=== PATIENT | female | born 1955 | race Caucasian/White ===

== ENCOUNTER 2020-12-12 06:31 | Day surgery (SDC) | payer BC ==
[2020-12-06 12:17] LABS: Urine Appearance CLEAR (Clear); Urine Bilirubin NEGATIVE (Negataive); Urine Blood TRACE (Negative); Urine Color YELLOW (Yellow); Urine Glucose NEGATIVE (Negative); Urine Protein NEGATIVE (Negative); Urine Urobilinogen 0.2 mg/dL (0.2-1.0); Urine pH 5.5 (5.0-7.0)
[2020-12-06 12:18] LABS: Urine Microscopic Reflex ORDER UMIC
[2020-12-06 12:22] LABS: Protime INR 0.97
[2020-12-06 12:25] LABS: Absolute Lymphocytes (CBC) 1.4 K/uL (0.7-4.9); Basophils % 0.8 % (0-1.3); Hematocrit 36.6 % (36.0-45.0); Lymphocytes % 27.4 % (15.3-44.8); MPV 7.5 fL (7.6-11.3); RBC Red Blood Cell Count 4.24 M/uL (3.86-4.86)
[2020-12-06 12:40] LABS: Urine Bacteria <20 /HPF (<20); Urine RBC NONE SEEN /HPF (NONE SEEN); Urine Urothelial Cells <5 /HPF (NONE SEEN)
[2020-12-12] MEDS ORDERED: Ringers Lactate 1,000 ML IV ONE ×3 (07:01→11:30)
[2020-12-12] MEDS ORDERED: SCOPOLAMINE HYDROBROMIDE PATCH TD ONE (07:01)
[2020-12-12] MEDS ORDERED: CEFAZOLIN/SWI 2gm 2 GM/20 ML SYR ONE (07:02)
[2020-12-12] MEDS ORDERED: propofoL 200 MG/20 ML VIAL IV ONE (07:17)
[2020-12-12] MEDS ORDERED: KETAMINE HCL 500 MG/5 ML VIAL ONE (07:17)
[2020-12-12] MEDS ORDERED: ROCURONIUM 50 MG/5 ML VIAL IV ONE (07:17)
[2020-12-12] MEDS ORDERED: MIDAZOLAM HCL 2 MG/2 ML INJ ONE (07:18)
[2020-12-12] MEDS ORDERED: dexAMETHasone 10 MG/ML VIAL ONE (07:18)
[2020-12-12] MEDS ORDERED: LIDOCAINE 2% MPF 5 ML VIAL ONE (07:18)
[2020-12-12] MEDS ORDERED: FENTANYL CITR 250 MCG/5 ML ONE (07:18)
[2020-12-12] MEDS ORDERED: ONDANSETRON 4 MG/2 ML VIAL ONE (07:21)
[2020-12-12] MEDS ORDERED: NA CHLORIDE 0.9% 100 ML IV ONE (07:43)
[2020-12-12] MEDS ORDERED: BUPIVACAINE 0.25% PF 30 ML VIAL ONE ×2 (07:44→13:05)
[2020-12-12] MEDS ORDERED: CEFAZOLIN/SWI 1gm 1 GM/10 ML SYR ONE (08:03)
[2020-12-12] MEDS ORDERED: EPHEDRINE SULF 50 MG/ML VIAL ONE (08:33)
[2020-12-12] MEDS: VASOPRESSIN 20 UNIT/ML VIAL ONE ×2 (08:54→12:59)
[2020-12-12] MEDS ORDERED: CEFAZOLIN SODIUM 1 GM/VIAL ONE (11:14)
[2020-12-12] MEDS ORDERED: FENTANYL CITR 100 MCG/2 ML ONE (12:46)
[2020-12-12] MEDS ORDERED: KETOROLAC 30 MG/ML INJ ONE (14:24)
[2020-12-12] MEDS ORDERED: MORPHINE 10 MG/ML VIAL ONE (14:32)
[2020-12-12] MEDS ORDERED: clonazePAM 0.5 MG TAB PO PRN (14:36)
[2020-12-12] MEDS ORDERED: ONDANSETRON 4 MG/2 ML VIAL IV PRN (14:37)
[2020-12-12] MEDS ORDERED: MORPHINE 2 MG/ML SYR IV PRN (14:37)
[2020-12-12] MEDS ORDERED: PROMETHAZINE 25 MG TABLET PO PRN (14:37)
[2020-12-12] MEDS ORDERED: ACETAMINOPHEN 500 MG TAB PO PRN (14:37)
--- NOTE | 2020-12-12 14:46 | P.BOP ---
Preoperative diagnosis: anterior apical stage 3 defects, rectocele, CHEO Postoperative diagnosis: same, perinal body defect Primary procedure: Laparoscopy BSO, SCP, MUS (TVT-O) Secondary procedure: Rectocele repair, perineorrhaphy,cysto Back Shoe Cutter: Robert Miramontes Estimated blood loss: 100 Specimen: bilateral ovaries Findings: -1/+2/-2/5/mod/8/-1/0/na, tubes ovaries adhered to cuff Anesthesia: General Complications: None Drain(s): Urinary catheter Implants: upsylon y mesh, tvt-o Transferred to: Recovery Room Condition: Good
[2020-12-12] MEDS ORDERED: Ringers Lactate 1,000 ML IV SCH (15:00)
[2020-12-12 15:24] VITALS: O2SAT 98
[2020-12-12] MEDS ORDERED: PNEUMOCOCCAL VACCINE 0.5 ML IMVAC ONE (20:00)
[2020-12-12] MEDS ORDERED: HOME MED 1 EA UNK (Famotidine [Famotidine] 40 MG Tablet) PO SCH (21:00)
[2020-12-12] MEDS ORDERED: LANSOPRAZOLE 15 MG PO SCH (21:00)
[2020-12-13 06:02] LABS: Absolute Lymphocytes (CBC) 1.6 K/uL (0.7-4.9); Basophils % 0.2 % (0-1.3); Hematocrit 27.4 % (36.0-45.0); Lymphocytes % 17.1 % (15.3-44.8); MPV 7.4 fL (7.6-11.3); RBC Red Blood Cell Count 3.26 M/uL (3.86-4.86)
[2020-12-13] MEDS ORDERED: lisinopriL 10 MG TAB PO SCH (09:00)
[2020-12-13] MEDS ORDERED: [UNRECOGNIZED DRUG - OTHER] PO SCH (09:00)
[2020-12-13] MEDS ORDERED: HOME MED 1 EA UNK (Thyroid,Pork [Armour Thyroid] 60 MG Tablet) PO SCH (09:00)
[2020-12-13] MEDS ORDERED: CALCIUM CARBONATE PO SCH (09:00)
[2020-12-13] MEDS ORDERED: VITAMIN D3 PO SCH (09:00)
[2020-12-13 11:18] VITALS: BP 97/51; TEMP 98.4
--- NOTE | 2021-01-01 20:54 | OP ---
Date of Procedure: 12/12/2020 Surgeon: Tiffanie Tran MD Forestry And Wildlife Manager: Robert Miramontes MD. Preoperative Diagnosis: Anterior and apical stage III defect, rectocele, stress urinary incontinence . Postoperative Diagnosis: Anterior and apical stage III defect, rectocele, stress urinary incontinenc e and perineal body defect. Procedures Performed: 1.Diagnostic laparoscopy, bilateral salpingo-oophorectomy. 2.Laparoscopic sacral colpopexy with Upsylon Y-mesh. 3.Mid urethral sling (TVTO). 4.Rectocele repair (posterior wall repair). 5.Perineorrhaphy and cystoscopy. Ebl: 100. Specimen: Bilateral ovaries. Anesthesia: General endotracheal. Complications: No complications. Drains: Urinary catheter. Implants: Upsylon Y-mesh and TVTO. Findings: On pop Q -1, -2, 5 moderate 8, -1, 0, NA. Tubes and ovaries adhered to the vaginal cuff, lysis of adhesions had to be done in order for me to proceed with this. After suspension with the Y-mesh, the apox was at -8 and the entire anterior wall was optimally suspe nding. Posterior wall distally had a defect about 4 cm. I did not put the graft in the distal 4 cm towards the peritoneum. This had to be repaired. On cystoscopy, both ureteric orifices were well visualized and jets of urine seen from them. No evid ence of any bladder masses or trauma or foreign body. Indications: The patient is a 65-year-old female with symptomatic vaginal prolapse, presented for ev aluation and treatment. After office evaluation, she was sent for medical clearance and Dr. Svetlana griffith is her primary Care, had done that. She has history of hypertension, hypothyroidism, anxiety, and GERD. She had an echocardiogram as well and had clearance from her primary care and the [facility] in [place]. had cleared her and recommended to stop her from her blood thinners 3 days prior. She had urodynamic testing and cystoscopy in the office and clear evaluation showed laila t she had an anterior greater than apical defect, but both significant. Posterior defect not as sign ificant as the anterior wall and stress urinary incontinence on testing surgery or pessary were the 2 alternatives reviewed with the patient and surgical options, vaginal and laparoscopic procedures wit h and without graft were all reviewed. Pelvic floor muscle therapy and observation were also alterna tives. After considering everything benefits and risks, comparative recurrence rates, the patient wa nted to proceed with the laparoscopic sacral colpopexy, and she was consented for the same as we were going through the abdominal approach. Bilateral salpingo-oophorectomy for risk reduction was also r eviewed with the patient and she was consented appropriately. Her overactive bladder was also signif icant, however with maximal urethral closure pressure close to 60, then suspected CHEO, was reviewed w ith the patient and consented for a sling. Started local hormone therapy prior to the surgery and tita wel regimen started. Bleeding, infection, injury to the bowel, bladder and ureters, very rare occasion in which a fistula could develop, mesh erosion or exposure. All were reviewed with the patient and she was consented an d taken back to OR. Description Of Procedure: She was placed in the supine fashion on the operating table. General anes thesia was given. Placed in a dorsal lithotomy position using Tate stirrups. Vulva, vagina, perine um, and abdomen were prepped and draped in a sterile fashion. Gonzales was placed to drain the bladder and a vaginal retractor was placed for the vaginal cuff retraction. A Breisky retractor and the EEA sizer were all used during this to try different manipulation systems . 1 cm infraumbilical incision was made with a scalpel using the open laparoscopy technique. Fascia wa s incised, tagged with 0 Vicryl sutures. Peritoneum was entered sharply. S-retractor was placed. H asson was introduced. After adequate insufflation and camera placed, site of entry was checked, unre markable. Patient was placed in Trendelenburg. 10 suprapubic, 5 left upper quadrant, and two 8 were placed in the right and left lower quadrants. Once all these ports were well positioned, then start ed her salpingo-oophorectomy. Her ovary was adhered to the vaginal cuff, especially very significant ly on the left side near the cuff angle and then the ovary on the right was slightly more adhered to the sidewall. There small amount of bowel adhesions to the left ovary and the pelvic brim were all t aken down with sharp dissection as well as electrical, mechanical cautery and dissection. Then, the sidewall was opened up with the help of opening the peritoneum and then IP ligament was isolated betw een the ovarian vessels and the ureter. Then, after the window was made, IP was taken down and the o vary was peeled off the sidewall and top of the vaginal cuff. Similar dissection was performed on th e lateral wall, opening of the IP ligament and taking down and peeling the ovary off the sidewall and these specimens were retrieved through the suprapubic port as they were very tiny. Thorough irrigation and suction were performed and on retraction, the bladder was identified and the superior margins. Then, peritoneum was incised at the level of the vaginal cuff carefully staying ou t of the bladder. Once all the tissue was taken on the peritoneal level and the vesicovaginal space was entered, the bladder was dissected inferiorly to at least 3.5 to 4 cm. Once this was done in chelsea quate fashion keeping the vaginal vasculature together without entering the vesicovaginal space, actu ally staying above that. Then went down to the posterior wall and thus the peritoneum below the cuff and tipped the dissection along the vaginal wall at least 5 to 6 cm inferiorly dropping the rectum. Then coming to the sacral promontory, the promontory was difficult to be identified. The bifurcatio n of the aorta was much lower almost on top of S1. Peritoneum was incised to visualize the vessels d efinitely. The left IMV was crossing over the vertebral column. It was very difficult to dissect th e anterior longitudinal ligament. Carefully the presacral plexus of nerves was identified. The svitlana toneum was incised all the way down to meet the posterior wall dissection. Then carefully the bowel was retracted laterally and dissection was performed above the IMV between the left IMV and aortic ve ssels or the left common iliac retracting the presacral plexus to the right anterior longitudinal lig ament was found, and it was cleaned up. To this smaller amount of exposure then what was ideal and i s normal for patient but I thought that this was adequate for fixation. Once the space was created, Dr. Miramontes was there to help me during this dissection and went by his direction and advice as well. Once this was done, then the mesh graft was attached to the posterior wall after trimming it to 8 cm on the posterior length of the arm and then 6 cm on the anterior length of the arm. Two prolene 2-0 sutures were placed at both distal edges on the top of the mesh to the posterior vaginal wall and the connective tissue. Then in the center, a V-Loc was placed. Then 2 further V-Locs were placed in a more proximal part of the vaginal posterior wall to leave the mesh flat on the posterior wall at the distal margin close to the cuff and the graft was pulled up and attached to the anterior longitudinal ligament leaving with about 5 cm of the vertical length of the stem of the Y. This was placed in th e anterior longitudinal ligament and the ProTacks were used to tack it. Two ProTacks were placed in 1 plane and then the mesh was folded over and 2 more ProTacks were placed. Then the mesh was trimmed . All the structures were safe. The ureter was way over to the right. Bowel was safe. Then the gr aft was left in the spine. The anterior arm of the Y was then fixated to the anterior vaginal wall j ust above the trigone. Two 2-0 Prolene sutures on each side and then in the center PDS suture was pl aced. Then 2 more sutures with V-Loc were placed at the proximal end to fixate this here without mov ing the cuff into the crotch of the Y. Once mesh suspension went down vaginally to look at the suspension of the vaginal apex, anterior wall and posterior proximal wall were all well suspended. No excessive tension. Changing the gloves, ca me back over, finished the closure of the peritoneum with a 2-0 V-Loc, starting at the top of the Y c oming down to the arms, to the right side, and then the left side. There was excellent closure and retroperitonealization. Suspension was adequate. All the trocars we re removed under direct vision. The bowel was released as well. Then all the skin sites and fascial sites were injected with Marcaine 0.25%, both at entry and exit. All the trocars were removed under direct vision. Bowel was freed up. After desufflating the abdomen, Rosi was removed. The fascia at the umbilicus and the suprapubic area were closed with the help of 0 Vicryl sutures and then skin incisions in all areas were closed with interrupted 4-0 Vicryl. Then, the vaginal preparation was started. The mesh graft was first placed for a sling. Mid urethra l area was picked up with 2 Allis clamps and injected with dilute vasopressin. Then on the ipsilater al side, at the 45-degree angle to the horizontal and vertical planes, hugging the inferior pubic edmar us, the mesh was passed through the obturator membrane, opened up the tract by pulling it backwards, retracting and back, same on the opposite side. Dissection was performed. Then wing guide was place d. Haroon was passed on the right. Then in a similar fashion with the wing guide on the left as well . Mesh was tensioned under the urethra using Metzenbaum scissors, trimmed, flushed at the skin. The plastic sheaths and the dilators were all pulled out. Antibiotic irrigation was done and the vagina l epithelium was closed on top of it with a 2-0 Vicryl suture. Cystoscopy was performed with a 30-degree lens and normal saline. Strong jets of urine from both. N o evidence of any trauma or foreign body or tumors. Scope was removed and Gonzales was placed. On the vestibule, 2 Allis clamps were placed on each side. Then ary-shaped incision was incised after injecting dilute vasopressin. A ary-shaped vaginal epithelium was denuded from the underly ing connective tissue as well as the prolapse. Then, the contents were all reduced down freeing up t he edges and extending the incision to the level of the distal part of the graft. Once this was done and all the peritoneum was also laid up, this reconstruction, this area was brought together with a 2-0 PDS in a continuous running fashion and then closed close to the perineal body. 2-0 Vicryl inter rupted sutures were placed and then the 2-0 PDS was included in it. Vaginal epithelium was trimmed. Enterocele was not present. The rectocele was reduced and the vaginal epithelium slightly more trim med and closed with the help of 2-0 Vicryl in a continuous running fashion all the way to the outside and then here in a subcuticular fashion 3-0 Vicryl was used to close as well as 3-0 Vicryl used to c lose the peritoneum. Rectal exam was performed. Perineal body repair was performed. For this, clos ure was done with interrupted 2-0 Vicryl sutures. There was excellent reconstruction here and suppor t. Rectal exam was negative. Instrument, needle, and sponge counts x3 were correct at the end of case. The patient tolerated the procedure well. She was kept overnight with vaginal packing in place and Gonzales in place. SIMON/DAVE Voice ID: [id number] Report ID: [id number]
== END 2020-12-13 09:55 | disposition home or self-care (01) ==
LOC: OR 06:31 → 2ND-WC 14:37 → OR 12-13 09:55
PROVIDERS: ATTEND Obstetrics & Gynecology
PROC: 0UT74ZZ Resection of Bilateral Fallopian Tubes, Percutaneous Endoscopic Approach (ICD-10-PCS; 2020-12-12)
PROC: 0USG4ZZ Reposition Vagina, Percutaneous Endoscopic Approach (ICD-10-PCS; 2020-12-12)
PROC: 0TSD4ZZ Reposition Urethra, Percutaneous Endoscopic Approach (ICD-10-PCS; 2020-12-12)
PROC: 0JQC0ZZ Repair Pelvic Region Subcutaneous Tissue and Fascia, Open Approach (ICD-10-PCS; 2020-12-12)
PROC: 0WQNXZZ Repair Female Perineum, External Approach (ICD-10-PCS; 2020-12-12)
PROC: 0UT24ZZ Resection of Bilateral Ovaries, Percutaneous Endoscopic Approach (ICD-10-PCS; principal; 2020-12-12 09:30)
DX: N99.3 Prolapse of vaginal vault after hysterectomy (principal); N39.3 Stress incontinence (female) (male); N95.2 Postmenopausal atrophic vaginitis; I10 Essential (primary) hypertension; F41.9 Anxiety disorder, unspecified; E03.9 Hypothyroidism, unspecified; U07.1 COVID-19
CPT/HCPCS: 58661; 57425; 57288; 57250; 85025 ×2; 80048; 36415 ×2; 86900; 86850; 85610; 86901; 88305; 85730; 94010; U0002; J2704; J2250; J3010 ×2; J1100; J2270; J0690 ×3; J7120 ×6; J2405; 81003; 81015; 90732

== ENCOUNTER 2024-07-09 13:16 | Emergency (ER) | payer OTHER, MEDICARE ==
--- OUTSIDE RECORDS SUMMARY | 2024-07-09 13:21 | XMS REPORT | Continuity of Care Document ---
Author Name Unknown Address [address] [place] [address] [place] [address] thconnect Address [address] [place] [address] [address] [place] [address] Care Team Providers Care Layout Inspector Name Role Phone Svetlana Bermudez Attending Clinician Unavailable [email or web address]_Kadiyala_S Attending Clinician Unavaila ble [email or web address]_Kadiyala_S Admitting Clinician Unavaila ble Payers Payer Name Policy Type Policy Number Effective Date Expirati on Date Source MEDICARE [place]: marshallindex [id number] 2019 00:00:00 [employer] (MEDICARE SUPPLEMENT) [id number] 2023 00:00:00 Problems Condition Name Condition Details Condition Category Status Onset Date Resolution Date Last Treatment Date Treating Clinician Comments Source Incontinen ce of feces Incontinen ce of Feces Problem Active 7-02 00:00: 00 [facility] Mass of lower limb Mass of Lower Limb Problem Active 4-12 00:00: 00 [facility] Localized swelling of left lower limb Localized Swelling of Left Lower Limb Problem Active 4-12 00:00: 00 [facility] Overactive bladder Overactive Bladder Problem Active 2019-09 2-14 00:00: 00 [facility] Prolapse of vaginal vault after hysterecto my Prolapse of Vaginal Vault after Hysterecto my Problem Active 2019-09 1-18 00:00: 00 [facility] Essential hypertensi on Essential Hypertensi on Problem Active 2019-09 0-08 00:00: 00 [facility] Midline cystocele Midline Cystocele Problem Active 2019-09 0-08 00:00: 00 [facility] Atrophic vaginitis Atrophic Vaginitis Problem Active 2019-09 0-08 00:00: 00 [facility] Gynecologi melania examinatio n abnormal Gynecologi melania Examinatio n Abnormal Problem Active 2019-09 00:00: 00 [facility] Social History Smoking Status Start Date Stop Date Source Never Smoker [facility] Medications Ordered Medication Name Filled Medication Name Start Date Stop Date Current Medication? Ordering Clinician Indication Dosage Frequency Signature (SIG) Comments Components Source alendronate 70 mg tablet Take 1 tablet every week by oral route. alendronate 70 mg tablet Take 1 tablet every week by oral route. No 1 Q1W alendronat e 70 mg tablet Take 1 tablet every week by oral route. [facility] amitriptyli ne amitriptyli ne No amitriptyl ine [facility] Calcium + D Calcium + D No Ca lcium + D [facility] clonazepam clonazepam No clonazepam [facility] estradiol 0.01% (0.1 mg/gram) vaginal cream Insert 0.5 g 3 times a week by vaginal route at bedtime for 30 days. estradiol 0.01% (0.1 mg/gram) vaginal cream Insert 0.5 g 3 times a week by vaginal route at bedtime for 30 days. No .5g Q56H estradiol 0.01% (0.1 mg/gram) vaginal cream Insert 0.5 g 3 times a week by vaginal route at bedtime for 30 days. [facility] hyoscyamine 0.125 mg [address] tablet Place 1 tablet as needed by sublingual route. hyoscyamine 0.[address] tablet [address] 1 tablet as needed by sublingual route. No 1 hyoscyamin e 0.125 mg [address] tablet Place 1 tablet as needed by sublingual route. [facility] iron iron No iron [facility] levothyroxi ne 50 mcg tablet levothyroxi ne 50 mcg tablet No levothyrox ine 50 mcg tablet [facility] multivitami n multivitami n No multivitam in [facility] Medical Procedures Procedure Date / Time Performed Performing Clinicia n Source Open Repair of Ventral Hernia 2022-06-08 00:00:00 [facility] Medical Laparoscopy 2020-12-12 00:00:00 [facility] Hysterectomy - Vaginal 1992-09-08 00:00:00 [facility] Excision of Bunion [facility] Me dical Procedure on Back [facility] Med ical Plan of Care Planned Activity Planned Date Details Comments Source Future Appointment 2024-09-13 09:15:[address], [place] [address] [facility] Medical Encounters Start Date/Time End Date/Time Encounter Type Admission Type Attending [facility] Care Facility Care Department Encounter ID Source 2024-04-19 08:15:00 Outpatient Svetlana Bermudez [facility] [id number] [facility] 2023-10-27 09:03:00 Outpatient Svetlana Bermudez [facility] [id number] [facility] 2022-11-05 13:54:00 Outpatient Svetlana Bermudez [facility] [id number] [facility] 2022-11-04 14:33:00 Outpatient Svetlana Bermudez STLMVICKIE [facility] [id number] [facility] 2022-07-04 11:46:00 Outpatient Svetlana Bermudez [facility] [id number] [facility] 2022-04-18 09:16:01 Outpatient Svetlana Bermudez [facility] [id number] [facility] 2022-04-15 11:32:00 Outpatient Svetlana Bermudez [facility] [id number] [facility] 2022-04-11 09:02:00 Outpatient Svetlana Bermudez [facility] [id number] [facility] 2021-10-24 09:24:01 Outpatient McintoshSvetlana griffith [facility]LMLC [facility] [id number] [facility] 2021-10-03 12:07:09 Outpatient McintoshSvetlana griffith [facility]C [facility] [id number] [facility] 2023-12-10 00:00:00 2023-12-10 00:00:00 TING Morales: Juliane [address], [address], [place] [address] , Ph. GC_GCBZW_Ka diyala_S PRIV [facility] - GC_GCBZW_La ke Yung* [id number] [facility] 2023-11-04 00:00:00 2023-11-04 00:00:00 Outpatient GC_GCBZW_Ka diyala_S PRIV PRIV [id number] [facility] 2023-10-25 00:00:00 2023-10-25 00:00:00 Outpatient GC_GCBZW_Ka diyala_S PRIV PRIV [id number] [facility] 2023-09-11 00:00:00 2023-09-11 00:00:00 Outpatient GC_GCBZW_Ka diyala_S PRIV PRIV [id number] [facility] 2023-09-09 00:00:00 2023-09-09 00:00:00 Outpatient GC_GCBZW_Ka diyala_S PRIV PRIV [id number] [facility] 2023-07-07 00:00:00 2023-07-07 00:00:00 Outpatient GC_GCBZW_Ka diyala_S PRIV PRIV [id number] [facility] 2023-07-06 00:00:00 2023-07-06 00:00:00 Outpatient GC_GCBZW_Ka diyala_S PRIV PRIV [id number] [facility]
--- NOTE | 2024-07-09 15:44 | RAD REPORT ---
EXAM:Ribs Right HISTORY: R lateral rib injury COMPARISON: None IMPRESSION: Limited by underpenetration which could obscure a nondisplaced and/or minimally displaced rib fractures. No displaced right-sided rib fractures are identified. No pneumothorax.
--- NOTE | 2024-07-09 16:02 | EDPHYS ---
Physician Documentation [facility] Name: Jessy Santana Age: 69 yrs Sex: Female : 1955 Arrival Date: 07/09/2024 Time: 13:16 Bed Treatment Private MD: ED Physician Kenny Teixeira HPI: 07/09 14:51 This 69 yrs old Female presents to ER via Ambulatory with complaints of Back ec2 Pain. 14:51 Patient arrives today for right-sided mid back pain in the setting of no trauma. States ec2 that she pulled a blanket and subsequently brought her back. No falls injuries or trauma. Has taken Tylenol with minimal alleviation in symptoms.. Historical: - Allergies: 14:10 No Known Allergies; aa5 - PMHx: 14:11 Hypertensive disorder; GERD; Low back pain; Back FX; aa5 - PSHx: 14:11 hysterectomy; Bunion removal; aa5 14:11 Back SX; aa5 - Immunization history:: Adult Immunizations unknown. - Infectious Disease History:: Denies. - Social history:: Smoking status: Patient denies any tobacco usage or history of. ROS: 14:51 Constitutional: as per hpi ec2 Exam: 14:51 Constitutional: GEN: NAD Head: atraumatic Eyes: EOMI Ears: External ears are ec2 normal. CV: regular rate LUNGS: no respiratory distress ABD: non-distended SKIN: no evidence of rashes MSK: Right lateral ribs with TTP without deformities or crepitus or overlying ecchymosis Vital Signs: 14:07 BP 143 / 98; Pulse 103; Resp 18 S; Temp 98.4(O); Pulse Ox 97% on R/A; Weight 85.73 kg aa5 (R); Height 5 ft. 4 in. (R); 14:43 BP 136 / 90; Pulse 98; Resp 16; Pulse Ox 95% ; me1 14:07 Body Mass Index 32.44 (85.73 kg, 162.56 cm) aa5 MDM: 14:43 Medical Screening Exam initiated ec2 14:51 Data reviewed: vital signs. ED course: Patient arrives today for evaluation of right ec2 lateral rib pain. Examination remarkable for MSK findings as above. Will obtain rib series and treat the patient's pain. Suspect muscular strain, doubt fracture, doubt dislocation. 15:55 ED course: Radiograph with no obvious significant deformities. Will discharge home have ec2 the patient follow-up with PCP. Return precautions given.. 07/09 14:47 Order name: Ribs Right XRAY; Complete Time: 15:55 ec2 Administered Medications: 15:22 Drug: Acetaminophen PO 1000 mg PO once Route: PO; me1 15:23 Drug: Lidoderm Topical Patch 5 % (700 mg/patch) 1 patches Topical once; leave on for 12 me1 hours; cover most painful area; may cut into smaller pieces {Note: right mid back.} Route: Topical; Site: affected area; 15:23 Drug: Diazepam PO 5 mg PO once Route: PO; me1 15:23 Drug: Ketorolac IM 30 mg IM once Route: IM; Site: right deltoid; me1 Disposition Summary: 07/09/24 16:01 Discharge Ordered Notes: Location: Home ec2 Condition: Stable ec2 Diagnosis - Mid Back Pain ec2 Followup: ec2 - With: Private Physician - When: - Reason: Re-evaluation by your physician Discharge Instructions: - Discharge Summary Sheet ec2 - Rib Contusion ec2 Forms: - Medication Reconciliation Form ec2 - Antibiotic Education ec2 - Prescription Opioid Use ec2 - Patient Portal Instructions ec2 - Leadership Thank You Letter ec2 Prescriptions: - methocarbamol 500 mg Oral tablet - take 2 tablets ORAL route 4 times per day; 20 tablet; Refills: 0, Product ec2 Selection Permitted Signatures: Dispatcher [employer] Haley Munoz RN RN aa5 Trang Cristina RN RN me1 Kenny Teixeira MD MD ec2 Corrections: (The following items were deleted from the chart) 14:48 14:48 Ribs Right+RAD.RAD.BRZ ordered. EDMS EDMS
--- NOTE | 2024-07-09 16:02 | ER ---
Nurse's Notes [facility] Name: Jessy Santana Age: 69 yrs Sex: Female : 1955 Arrival Date: 07/09/2024 Time: 13:16 Bed Treatment Private MD: Diagnosis: Mid Back Pain Presentation: 07/09 14:07 Chief complaint: Patient states: mid-lower back pain x 3-4 days ago, pt states "I was aa5 lying down on a blanket and I tried to pull it out from under me and I might of hurt my back then". Coronavirus screen: At this time, the client does not indicate any symptoms associated with coronavirus-19. Ebola Screen: Patient denies travel to an Ebola-affected area in the 21 days before illness onset. Initial Sepsis Screen: Does the patient meet any 2 criteria? No. Patient's initial sepsis screen is negative. Does the patient have a suspected source of infection? No. Patient's initial sepsis screen is negative. Risk Assessment: Do you want to hurt yourself or someone else? Patient reports no desire to harm self or others. Onset of symptoms was June 2024. 14:07 Acuity: GIAN 3 aa5 14:07 Method Of Arrival: Ambulatory aa5 Historical: - Allergies: 14:10 No Known Allergies; aa5 - PMHx: 14:11 Hypertensive disorder; GERD; Low back pain; Back FX; aa5 - PSHx: 14:11 hysterectomy; Bunion removal; aa5 14:11 Back SX; aa5 - Immunization history:: Adult Immunizations unknown. - Infectious Disease History:: Denies. - Social history:: Smoking status: Patient denies any tobacco usage or history of. Screenin:36 [facility] ED Fall Risk Assessment (Adult) History of falling in the last 3 months, me1 including since admission No falls in past 3 months (0 pts) Confusion or Disorientation No (0 pts) Intoxicated or Sedated No (0 pts) Impaired Gait No (0 pts) Mobility Assist Device Used No (0 pt) Altered Elimination No (0 pt) Score/Fall Risk Level 0 - 2 = Low Risk Maintained a safe environment, Provided non-skid footwear, Hourly rounding (assess needs \\T\\ fall precautionary measures) done. Abuse screen: Denies threats or abuse. Nutritional screening: No deficits noted. Tuberculosis screening: No symptoms or risk factors identified. Assessment: 14:36 General: Appears uncomfortable, well groomed, well developed, well nourished, Behavior me1 is calm, cooperative, appropriate for age, Reports mid-lower back pain x 3-4 days ago, pt states "I was lying down on a blanket and I tried to pull it out from under me and I might of hurt my back then". Pain: Complains of pain in lumbar area Pain does not radiate. Pain currently is 3 out of 10 on a pain scale. at worst was 9 out of 10 on a pain scale. Quality of pain is described as aching, sharp, Pain began 3-4 days ago Is intermittent. Neuro: Level of Consciousness is awake, alert, obeys commands, Oriented to person, place, time, situation, Appropriate for age Cardiovascular: Patient's skin is warm and dry. Respiratory: Airway is patent Respiratory effort is even, unlabored, Respiratory pattern is regular, symmetrical. GI: No signs and/or symptoms were reported involving the gastrointestinal system. : No signs and/or symptoms were reported regarding the genitourinary system. EENT: No signs and/or symptoms were reported regarding the EENT system. Derm: Skin is intact, is healthy with good turgor, Skin is pink, warm \\T\\ dry. Musculoskeletal: Reports pain in lumbar area. Injury Description: mid-lower back pain x 3-4 days ago, pt states "I was lying down on a blanket and I tried to pull it out from under me and I might of hurt my back then". 16:17 Reassessment: Patient appears in no apparent distress at this time. Patient and/or me1 family updated on plan of care and expected duration. Pain level reassessed. Patient is alert, oriented x 3, equal unlabored respirations, skin warm/dry/pink. Vital Signs: 14:07 BP 143 / 98; Pulse 103; Resp 18 S; Temp 98.4(O); Pulse Ox 97% on R/A; Weight 85.73 kg aa5 (R); Height 5 ft. 4 in. (R); 14:43 BP 136 / 90; Pulse 98; Resp 16; Pulse Ox 95% ; me1 14:07 Body Mass Index 32.44 (85.73 kg, 162.56 cm) aa5 ED Course: 13:21 Patient arrived in ED. im 13:38 Kenny Teixeira MD is Attending Physician. ec2 14:07 Arm band placed on. aa5 14:10 Triage completed. aa5 14:31 Trang Cristina, RN is Primary Nurse. me1 14:36 Patient has correct armband on for positive identification. Bed in low position. Call me1 light in reach. Side rails up X 1. Provided Education on: POC. Verbalized understanding.. Client placed on continuous cardiac and pulse oximetry monitoring. NIBP monitoring applied. Pulse ox on. NIBP on. 14:36 No provider procedures requiring assistance completed. me1 15:34 Ribs Right XRAY In Process Unspecified. EDMS 16:17 Patient did not have IV access during this emergency room visit. me1 Administered Medications: 15:22 Drug: Acetaminophen PO 1000 mg PO once Route: PO; me1 15:23 Drug: Lidoderm Topical Patch 5 % (700 mg/patch) 1 patches Topical once; leave on for 12 me1 hours; cover most painful area; may cut into smaller pieces {Note: right mid back.} Route: Topical; Site: affected area; 15:23 Drug: Diazepam PO 5 mg PO once Route: PO; me1 15:23 Drug: Ketorolac IM 30 mg IM once Route: IM; Site: right deltoid; me1 Medication: 14:36 VIS not applicable for this client. me1 Outcome: 16:01 Discharge ordered by . ec2 16:17 Discharged to home ambulatory, me1 16:17 Condition: stable 16:17 Discharge instructions given to patient, Instructed on discharge instructions, follow up and referral plans. medication usage, Demonstrated understanding of instructions, follow-up care, medications, Prescriptions given X 1, 16:18 Patient left the ED. me1 Signatures: Dispatcher [employer] [facility] [place] RN RN aa5 Mary Parekh Trang Cristina, TOMMY RN me1 Kenny Teixeira MD MD ec2 Corrections: (The following items were deleted from the chart) 14:13 14:07 BP 143 / 98; Pulse 103bpm; Resp 18bpm; Spontaneous; Pulse Ox 97% RA; Temp 98.4F aa5 Oral; aa5 14:36 14:07 Chief complaint: Patient states: mid-lower back pain x 3-4 days ago, pt states "I me1 was lying down on a blanket and I tried to pull it out from under me and I might of hurt my back then" aa5
[2024-07-09 16:28] VITALS: TEMP 98.4
[2024-07-09 16:30] VITALS: BP 136/90; O2SAT 95
== END 2024-07-09 16:18 | disposition home or self-care (01) ==
LOC: ER 13:16
DX: M54.9 Dorsalgia, unspecified (principal); R07.81 Pleurodynia
CPT/HCPCS: 96372; 99284